=== PATIENT | female | born 1990 | race Caucasian/White ===

== ENCOUNTER 2023-02-12 08:20 | Inpatient (IN) | payer OTHER ==
[~2023-02-12] VITALS: Ht 154.9 cm; Wt 125.6 kg
[2023-02-12 09:00] VITALS: BP 107/68
[2023-02-12] MEDS: LACTATED RINGERS 1,000 ML IV SCH ×2 (09:26→12:22)
[2023-02-12 09:44] LABS: BASOPHILS % (AUTO) 0.4 % (0.0-2.0); EOSINOPHILS % (AUTO) 0.4 % (0.0-4.0); HEMATOCRIT 34.7 % (36-48); HEMOGLOBIN 11.6 g/dL (12.0-16.0); LYMPHOCYTES # (AUTO) 1.9 K/uL (2.5-16.5); LYMPHOCYTES % (AUTO) 25.6 % (20.5-51.1); MEAN CORPUSCULAR HEMOGLOBIN 29 pg (27-31); MEAN CORPUSCULAR HGB CONC 34 g/dL (33-37); MEAN CORPUSCULAR VOLUME 87.4 fL (80-94); MONOCYTES # (AUTO) 0.4 K/uL (0.8-1.0); MONOCYTES % (AUTO) 5.8 % (1.7-9.3); NEUTROPHILS # (AUTO) 5.1 K/uL (1.8-7.7); NEUTROPHILS % (AUTO) 67.8 % (42.2-75.2); PLATELET COUNT (AUTO) 75 K/uL (140-450); RED BLOOD CELL COUNT(AUTO) 3.97 MIL/uL (4.20-5.40); RED CELL DISTRIBUTION WIDTH 13.3 % (11.6-13.7); WHITE BLOOD COUNT (AUTO) 7.5 K/uL (4.8-10.8)
[2023-02-12 10:52] LABS: APPEARANCE,URINE CLEAR (CLEAR); BILIRUBIN,URINE NEGATIVE (NEGATIVE); BLOOD, URINE NEGATIVE (NEGATIVE); COLOR,URINE YELLOW (YELLOW); LEUKOCYTE ESTERASE ,URINE 1+ (NEGATIVE); NITRITE, URINE NEGATIVE (NEGATIVE); PH,URINE 6.5 (5.0-9.0); UGLUCOSE NEGATIVE (NEGATIVE)
[2023-02-12 11:07] LABS: RBC,URINE NONE SEEN /HPF (0-5)
[2023-02-12] MEDS ORDERED: AMPICILLIN 2,000 MG VIAL ONE ×2 (11:59→12:00)
[2023-02-12] MEDS ORDERED: METOCLOPRAMIDE 10 MG/2 ML INJ VIAL ONE (12:00)
[2023-02-12] MEDS ORDERED: PROPOFOL 200 MG/20 ML VIAL IV ONE (12:00)
[2023-02-12] MEDS ORDERED: MEPERIDINE 50 MG/ML SYR ONE ×2 (12:00→12:14)
[2023-02-12] MEDS ORDERED: OXYTOCIN 10 UNITS/ML VIAL ONE (12:00)
[2023-02-12] MEDS ORDERED: fentaNYL citrate 0.05 MG/ML VIAL ONE (12:12)
[2023-02-12] MEDS ORDERED: MIDAZOLAM 2 MG/2 ML VIAL ONE (12:13)
[2023-02-12] MEDS ORDERED: AMPICILLIN 2,000 MG in NACL 0.9% 100 ML IV SCH (12:30)
[2023-02-12] MEDS ORDERED: METHYLERGONOVINE 0.2 MG/ML AMP IM PRN (12:45)
[2023-02-12] MEDS ORDERED: KETOROLAC 30 MG/ML VIAL IVP PRN (12:45)
[2023-02-12] MEDS ORDERED: TEMAZEPAM 15 MG CAP PO PRN (12:45)
[2023-02-12] MEDS ORDERED: diphenhydrAMINE 50 MG/ML VIAL IVP PRN (13:20)
[2023-02-12] MEDS ORDERED: MEPERIDINE 25 MG/ML SYR IVP PRN (13:20)
[2023-02-12] MEDS ORDERED: OXYTOCIN 20 UNITS in LACTATED RINGERS 1,000 ML IV SCH (13:20)
[2023-02-12] MEDS ORDERED: ONDANSETRON 4 MG/2 ML VIAL IVP PRN (13:20)
--- NOTE | 2023-02-12 13:21 | NUR ---
ATTENDED REPEAT . BABY BORN AT 1304. 9/9, STRONG CRY, GOOD MOVEMENT, PINK ALL OVER.
[2023-02-12] MEDS ORDERED: HYDROmorphone PFS 2 MG/ML SYR IVP PRN (13:30)
[2023-02-12] MEDS ORDERED: OXYTOCIN 20 UNITS/LR PREMIX 1,000 ML IV ONE ×2 (13:45→20:25)
[2023-02-12] MEDS: HYDROmorphone 1 MG/ML AMP IVP PRN ×4 (14:05→14:35)
--- NOTE | 2023-02-12 15:54 | NUR ---
PATIENT HAS BEEN SCREENED AND CATEGORIZED LOW NUTRITION RISK. PATIENT WILL BE SEEN WITHIN 7 DAYS OF ADMISSION. 02/19/[id number]
[2023-02-12] MEDS: OXYTOCIN 20 UNITS in LACTATED RINGERS 1,000 ML IV SCH (20:36)
[2023-02-12] MEDS: bisacodyL 5 MG TABEC PO SCH (20:43)
[2023-02-12] MEDS: DOCUSATE SOD/SENNA 50/8.6 MG 1 TAB PO SCH (20:43)
[2023-02-12] MEDS ORDERED: oxyCODONE/APAP 5/325 MG 1 TAB TAB PO PRN (23:00)
[2023-02-13] MEDS ORDERED: OXYTOCIN 20 UNITS/LR PREMIX 1,000 ML IV ONE (03:48)
[2023-02-13] MEDS: OXYTOCIN 20 UNITS in LACTATED RINGERS 1,000 ML IV SCH (04:45)
[2023-02-13 05:12] LABS: BASOPHILS % (AUTO) 0.3 % (0.0-2.0); EOSINOPHILS % (AUTO) 0.5 % (0.0-4.0); HEMATOCRIT 30.9 % (36-48); HEMOGLOBIN 10.5 g/dL (12.0-16.0); LYMPHOCYTES # (AUTO) 1.6 K/uL (2.5-16.5); LYMPHOCYTES % (AUTO) 15.9 % (20.5-51.1); MEAN CORPUSCULAR HEMOGLOBIN 30 pg (27-31); MEAN CORPUSCULAR HGB CONC 34 g/dL (33-37); MEAN CORPUSCULAR VOLUME 87.4 fL (80-94); MONOCYTES # (AUTO) 0.6 K/uL (0.8-1.0); MONOCYTES % (AUTO) 5.5 % (1.7-9.3); NEUTROPHILS % (AUTO) 77.8 % (42.2-75.2); PLATELET COUNT (AUTO) 56 K/uL (140-450); RED BLOOD CELL COUNT(AUTO) 3.54 MIL/uL (4.20-5.40); RED CELL DISTRIBUTION WIDTH 13.4 % (11.6-13.7); WHITE BLOOD COUNT (AUTO) 10.2 K/uL (4.8-10.8)
[2023-02-13] MEDS: oxyCODONE/APAP 5/325 MG 1 TAB TAB PO PRN ×3 (06:04→20:18)
[2023-02-13] MEDS: bisacodyL 5 MG TABEC PO SCH ×2 (08:56→21:47)
[2023-02-13] MEDS: SIMETHICONE 80 MG TAB.CHEW PO PRN (08:56)
[2023-02-13] MEDS ORDERED: CAMERA MC ONE (20:44)
[2023-02-13] MEDS: DOCUSATE SOD/SENNA 50/8.6 MG 1 TAB PO SCH (21:47)
[2023-02-14] MEDS: IBUPROFEN 800 MG TAB PO PRN ×3 (00:16→12:40)
[2023-02-14] MEDS: bisacodyL 5 MG TABEC PO SCH (09:25)
[2023-02-14] MEDS: SIMETHICONE 80 MG TAB.CHEW PO PRN ×2 (09:25→12:41)
== END 2023-02-14 14:00 | disposition home or self-care (01) | DRG 539 ==
LOC: MLD 08:20 → OBSVTOIN 08:50 → MFCC 14:50
PROVIDERS: ADMIT Obstetrics & Gynecology; ATTEND Obstetrics & Gynecology
PROC: 0UB60ZZ Excision of Left Fallopian Tube, Open Approach (ICD-10-PCS; 2023-02-12)
PROC: 10D00Z1 Extraction of Products of Conception, Low, Open Approach (ICD-10-PCS; principal; 2023-02-12 12:30)
DX: O99.12 Other diseases of the blood and blood-forming organs and certain disorders involving the immune mechanism complicating childbirth (principal); D69.6 Thrombocytopenia, unspecified; Z20.822 Contact with and (suspected) exposure to COVID-19; Z3A.38 38 weeks gestation of pregnancy; Z37.0 Single live birth; Z30.2 Encounter for sterilization
CPT/HCPCS: 36415; 51702; 81001; 85025; 85610; 85730; 86592; 86762; 86886; 86900; 86901; 87086; 87340; 88302; 90715; J0290; J1170; J1885; J2175; J2250; J2590; J2704; J2765; J3010; J7120